=== PATIENT | female | born 1985 | race Caucasian/White ===

== ENCOUNTER 2017-10-03 23:04 | Inpatient (IN) | payer SELFPAY ==
[2017-10-03 23:30] LABS: #Basophils 0.1 thou/uL (0.0-0.2); #Eosinphils 0.1 thou/uL (0.0-0.7); #Lymphocytes 2.7 thou/uL (1.20-3.40); #Monocytes 1.1 thou/uL (0.11-0.59); #Neutrophils 8.3 thou/uL (1.40-6.50); %Basophils 0.7 % (0.0-1.0); %Eosinophils 0.6 % (0.0-10.0); %Lymphocytes 21.9 % (21.0-51.0); %Monocytes 8.9 % (0.0-10.0); %Neutrophils 67.9 % (42.0-75.0); Hemoglobin 15.1 g/dL (12.0-16.0); Mean Corpuscular HGB CONC 33.3 g/dL (32.0-36.0); Mean Corpuscular Hemoglobin 31.2 pg (27.0-31.0); Mean Corpuscular Volume 93.6 fl (81.0-99.0); Mean Platelet Volume 7.6 fL (7.4-10.4); Platelet Count 307 thou/uL (130-400); RBC Distribution Width 12.3 % (11.5-14.5); Red Blood Cell (RBC) Count 4.86 mill/uL (4.20-5.40); White Blood Cell (WBC) Count 12.2 thou/uL (4.8-10.8)
[2017-10-03 23:32] LABS: Base Excess-Venous -5.3 mmol/L (0 (+/- 2.5)); Bicarbonate (HCO3v) 18.5 mmol/L (1.0-85.0); CO2 Tension (PvCO2) 31.4 mmHg (41.0-51.0); Calcium, Ionized 1.03 mmol/L (1.12-1.32); Hemoglobin - Calc 16.1 g/dL (12.0-18.0); O2 Tension (PvO2) 48.7 mmHg (35.0-45.0); T. Carbon Dioxide 19.5 mmol/L (1.0-85.0); pH (Venous) 7.379 (7.35-7.45); vO2 Saturation-calc 83.8 % (94-98)
[2017-10-03] MEDS ORDERED: Activated Charcoal/Sorbitol 25 GM/120 ML TUBE ONE (23:32)
[2017-10-03] MEDS ORDERED: Adacel (T-DAP) 0.5 ML VIAL ONE (23:32)
[2017-10-03 23:36] LABS: INR-International Normal Ratio 1.1; Prothrombin Time 14.4 SEC (12.0-14.7)
[2017-10-03 23:39] LABS: BHCG - Serum Negative (NEGATIVE); Pregs Control Background? CLEAR/WHITE (CLR/WHITE); Pregs Control Bar Appear? YES (CONTROL BAR)
[2017-10-03] MEDS ORDERED: Ondansetron HCl/PF 4 MG/2 ML Vial ONE (23:45)
[2017-10-04 00:11] LABS: Alcohol Less than 10 mg/dL (Less than 10); Salicylate Less than 8.0 mg/dL (15.0-30.0)
[2017-10-04 00:14] LABS: ALT (SGPT) 8 U/L (8-55); AST (SGOT) 10 U/L (5-34); Albumin 4.9 g/dL (3.5-5.0); Alcohol Less than 10 mg/dL (Less than 10); Alkaline Phosphatase 51 U/L (40-150); Anion Gap 20 mmol/L (10-20); BUN (Urea Nitrogen) 8 mg/dL (7.0-18.7); Bilirubin, Total 0.4 mg/dL (0.2-1.2); CK (CPK) 66 U/L (29-168); Calc. Creatinine Clearance 0 mL/min (70-130); Calcium 9.7 mg/dL (7.8-10.44); Carbon Dioxide 18 mmol/L (22-29); Chloride 102 mmol/L (98-107); Estimated GFR-MDRD 81; Globulin 3.9 g/dL (2.4-3.5); Glucose 222 mg/dL (70-105); Lipase 21 U/L (8-78); Protein, Total 8.8 g/dL (6.0-8.3); Sodium 137 mmol/L (136-145)
[2017-10-04 00:15] LABS: Acetaminophen Greater than 378.0 mcg/mL (10.0-30.0)
[2017-10-04] MEDS ORDERED: DEXTROSE 5% IVPB SCH ×6 (01:00→06:00)
[2017-10-04] MEDS ORDERED: WATER IVPB SCH ×6 (01:00→06:00)
[2017-10-04] MEDS ORDERED: ACETYLCYSTEINE IVPB SCH ×6 (01:00→06:00)
[2017-10-04] MEDS ORDERED: Sodium Chloride 0.9% 1,000 ML IV SCH (01:15)
--- NOTE | 2017-10-04 01:15 | PDOC.FPRHP ---
- History of Present Illness Chief Complaint: intentional overdose History of Present Illness: 32 yo female who presents via EMS for an intentional overdose with tylenol, aspiring, and caffeine at aproximately 2230 last night. She initially started cutting her wrists then took an unknown number of pills. She endorses suicidal ideation in the room. However she doesn't know really why she did it. Mom is in the room and says that she started telling her that the antichrist was going to burn her and since she knows tylenol is an antipyretic, she took several tylenol pills. Her mom endorses an undiagnosed psychiatric hx of recurrent episodes of staying up all night, reading the bible, and getting fixated on certain things in it. She also endorses that she sometimes talks to her self. Mom denies any hx of drug use, alcohol, or tobacco use. Mom reports that her daughter's father had Bipolar d/o. She doesn't have insurance and has been unwilling to go to [facility]. Mom reports episodes of depression as well. She states that once in the past, she saw a physician who put her on medication for ADD and Depression. - Allergies/Adverse Reactions Allergies Allergy/AdvReac Type Severity Reaction Status Date / Time Sulfa (Sulfonamide Allergy Unverified 10/04/17 00:23 Antibiotics) - History PMHx: ADD, Depression PSHx: none FHx:Father-Bipolar d/o Social:Has an 8 year old son; Denies smoking, alcohol, or drug use. - Review of Systems General: denies: fever/chills, weight/appetite/sleep changes Eyes: denies: eye pain, vision changes ENT: denies: nasal congestion, rhinorrhea Respiratory: denies: cough, congestion Cardiovascular: denies: chest pain, palpitation Gastrointestinal: denies: nausea, vomiting Genitourinary: denies: incontinence, dysuria Skin: denies: rashes, lesions Musculoskeletal: denies: pain, tenderness Neurological: denies: numbness, syncope Psychological: denies: anxiety, depression - Vital signs BP: 102/78 HR: 103 RR: 16 Tmax: 98 Pox: 97% on RA - Physical Exam Constitutional: NAD, other (sleepy) HEENT: normocephalic and atraumatic, PERRLA, EOMI, conjunctiva clear, no scleral icterus, normal nasal mucosa, MMM Neck: trachea midline, no JVD, no thyromegaly Heart: RRR, normal S1/S2, no murmurs/rubs/gallops, pulses present, no edema Lungs: CTAB, no respiratory distress, good air movement, no rales/rhonchi, no wheezing, no retractions Abdomen: soft, non-tender, bowel sounds present, no masses/distention Musculoskeletal: normal structure, other (normal gait) Neurological: no focal deficit, normal sensation Skin: no rash/lesions, capillary refill <2 seconds, no jaundice Heme/Lymphatic: no unusual bruising or bleeding, no purpura Psychiatric: other (abnormal affect) FMR H&P: Results - Labs Result Diagrams: 10/04/17 02:53 10/04/17 02:53 Lab results: WBC 12.2 thou/uL (4.8-10.8) H 10/03/17 23:15 Hgb 15.1 g/dL (12.0-16.0) 10/03/17 23:15 Hct 45.5 % (36.0-47.0) 10/03/17 23:15 MCV 93.6 fl (81.0-99.0) 10/03/17 23:15 Plt Count 307 thou/uL (130-400) 10/03/17 23:15 Neutrophils % 67.9 % (42.0-75.0) 10/03/17 23:15 VBG pCO2 31.4 mmHg (41.0-51.0) L 10/03/17 23:29 VBG pO2 48.7 mmHg (35.0-45.0) H 10/03/17 23:29 Sodium 137 mmol/L (136-145) 10/03/17 23:15 Potassium 3.0 mmol/L (3.5-5.1) L 10/03/17 23:15 Chloride 102 mmol/L (98-107) 10/03/17 23:15 Carbon Dioxide 18 mmol/L (22-29) L 10/03/17 23:15 BUN 8 mg/dL (7.0-18.7) 10/03/17 23:15 Creatinine 0.82 mg/dL (0.6-1.1) 10/03/17 23:15 Glucose 222 mg/dL (70-105) H 10/03/17 23:15 Lactic Acid 5.9 mmol/L (0.5-2.2) H* 10/03/17 23:15 Calcium 9.7 mg/dL (7.8-10.44) 10/03/17 23:15 Total Bilirubin 0.4 mg/dL (0.2-1.2) 10/03/17 23:15 AST 10 U/L (5-34) 10/03/17 23:15 ALT 8 U/L (8-55) 10/03/17 23:15 Alkaline Phosphatase 51 U/L (40-150) 10/03/17 23:15 Creatine Kinase 66 U/L (29-168) 10/03/17 23:15 Serum Total Protein 8.8 g/dL (6.0-8.3) H 10/03/17 23:15 Albumin 4.9 g/dL (3.5-5.0) 10/03/17 23:15 Lipase 21 U/L (8-78) 10/03/17 23:15 - EKG Interpretation EKG: NSR - Radiology Interpretation Abdominal x-ray Status: image reviewed by me (normal abdominal xray) FMR H&P: A/P - Problem List (1) Suicide attempt Current Visit: Yes Status: Acute (2) Intentional acetaminophen overdose Current Visit: Yes Status: Acute Code(s): T39.1X2A - POISONING BY 4- AMINOPHENOL DERIVATIVES, SELF-HARM, INIT (3) Intentional aspirin overdose Current Visit: Yes Status: Acute Code(s): T39.012A - POISONING BY ASPIRIN, INTENTIONAL SELF-HARM, INIT ENCNTR (4) Suicide ideation Current Visit: Yes Status: Acute Code(s): R45.851 - SUICIDAL IDEATIONS (5) Intentional self-harm Current Visit: Yes Status: Acute Code(s): DCL2067 - (6) Metabolic acidosis Current Visit: Yes Status: Acute Code(s): E87.2 - ACIDOSIS (7) Lactic acidosis Current Visit: Yes Status: Acute Code(s): E87.2 - ACIDOSIS (8) Hypokalemia Current Visit: Yes Status: Acute Code(s): E87.6 - HYPOKALEMIA (9) Hyperglycemia Current Visit: Yes Status: Acute Code(s): R73.9 - HYPERGLYCEMIA, UNSPECIFIED (10) Leukocytosis Current Visit: Yes Status: Acute Code(s): D72.829 - ELEVATED WHITE BLOOD CELL COUNT, UNSPECIFIED - Plan Ms. Navarrete is a 32 yo female who presents s/p suicide attempt 2/2 ingestion of tylenol, aspirin, and caffeine admitted for toxic ingestion, intentional overdose, and intentional self-harm. 1.)Suicide ideation with attempt-pt overdosed at approximately 2230 last night on tylenol, aspirin, and caffeine. see below for detailed plan. 2) Intentional Overdose - Pt overdosed on tylenol, aspirin, and caffeine. Poison control contacted in the ED. Charcoal given. N-Acetylcysteine Protocol started. We plan to monitor for anaphylactic reaction from NAC (as this occurs in 10-20% of pt's) and have benadryl, methylprednisolone, Epi, albuterol and crashcart by bedside. We ordered Q4hr tylenol levels; We will recheck a CMP in the am. MHMR consult once stable. We will place her on suicide precautions. She is going to be admitted to the ICU but once she is downgraded, we will order a sitter. We also plan to check aspirin levels q4hs; we will start a Bicarb drip if > 20 or Urine pH @8. If ASA> 100, she will need emergent dialysis, or sooner if symptomatic. 3.)Tylenol overdose-see above. 4.)Aspirin overdose- see above. 5.)Intentional hyoa-hsmn-px admits to cutting her wrists prior to ingestion as well as admits to the suicide attempt. Once medically stable we will consult MR. 6.)Suspected Bipolar d/o with psychotic features vs schizoaffective-She doesn't have insurance and has a father with bipolar d/o. Mom is concerned that her daughter often for 2 weeks at a time will stay up all night, talk to voices in her head, and become fixated on things written in the bible. She has never been diagnosed with a mental illness in her past, mostly because she doesn't have health insurance. Her mom has tried to get [facility] to go to [facility] 7) Lactic Acidosis - We started her on NS @ 125ml/hr and will recheck a level in 4 hours. 8) Hypokalemia - She was found to have low potassium We replaced it & will recheck in the am. We also ordered a magnesium level. 9) Anion Gap Metabolic Acidosis 2/2 lactic acidosis & possibly ASA overdose - F/ u with BMP in am. 10) Hyperglycemia - monitor closely. We will order a HgA1c. 11) Leukocytosis - We think this is likely reactive. We will f/u with a CBC in the am. FMR H&P: Upper Level - Plan Date/Time: 10/04/17 0115 Giselle Alexander, PGY3, have evaluated this patient and agree with findings/plan as outlined by internet project manager resident. Pertinent changes/additions are listed here. This is a 32 yo WF w/ no PMH, however has not been to a physician in years, presents to ED for Tylenol/ASA overdose. She took 12 pills of an excedrine or maybe more per mom around 10:30pm tonight intentionally. Her son found her cutting her wrists and taking the medication. 911 was called. In the ER, poison control was called and recommended checking tox labs, and her Acetaminophen level was 378 and they recommended starting Charcoal and N-Acetylcystine and watching her closely for seizures, AMS and arrythmias. If her ASA level is above 20, start treatment with Bicarb drip or if urine pH @ 8, start bicarb drip w/ K+. Mom in room and concerned that patient is bipolar as she has manic and depressive events, and patient's dad was bipolar. Patient quit her job at [employer] about 1 week ago due, was PE: AOX4 in no acute distress. Laying in bed, drinking charcoal. Answering some questions, but not all of them. HEENT: Lips are black stained from charcoal. Pharynx clear. Conjunctiva injected. TM WNL. CV: Mildly Tachycardic, regular. No murmur. Resp: CTA bilaterally. No retractions or accessory muscle use Abd: Soft, non-tender to palpation, No organomegaly. Neuro: CNII-XII intact. Skin: Cut lopes on bilateral wrists, all hemostatic Psych: Currently answering questions appropriately. A/P: 1) Tylenol overdose w/ Suicide ideation - Poison control contacted in the ED. Charcoal given. N-Acetylcysteine Protocol started as level was 378. Will monitor for anaphylacic reaction and have benadryl, methylprednisolone, Epi, albuterol and crashcart by bedside. Q4hr tylenol levels. CMP's. [facility] consult once stable. Suicide precautions. 2) Concern for ASA OD - ASA levels Q4hrs. Start Bicarb drip if > 20 or Urine pH @8. If ASA> 100, need dialysis, or sooner if symptomatic. 3) Lactic Acidosis - Fluids. Repeat level 4) Hypokalemia - replace & recheck. Check Magnesium 5) Anion Gap Metabolic Acidosis 2/2 lactic acidosis & possibly ASA overdose - F/ u with BMP. 6) Hyperglycemia - monitor closely, as patient's brain glucose may be lower than serum glucose. HgA1c. 7) Leukocytosis - likely reactive. F/u with CBC. Attending Addendum - Attending Addendum Date/Time: 10/04/17218 I personally evaluated the patient and discussed the management with Dr. Godfrey Morales on 10/04/17. I agree with the History, Examination, Assessment and Plan documented above with any addition or exceptions noted below. Patient with tylenol and aspirin overdose. For tylenol overdose, meets criteria for NAC 3 hours after ingestion based on significantly elevated tylenol serum level. Received activated charcoal in the ER. Will transfer to ICU for NAC treatment based on elevated tylenol levels at an early hour. In addition, will monitor aspirin levels. If increase to >20 or become symptomatic , will start bicarb drip.
[2017-10-04] MEDS ORDERED: Albuterol Sulfate 1.25 MG/3 ML NEB NEB PRN (01:26)
[2017-10-04] MEDS ORDERED: EPINEPHrine 1 MG/10 ML Abboject SYRINGE IVP SCH (01:30)
[2017-10-04] MEDS ORDERED: diphenhydrAMINE 50 MG/ML VIAL IVP SCH (01:30)
[2017-10-04 01:31] LABS: Bilirubin Negative (Negative); Blood, Urine Negative (Negative); Clarity CLEAR (Clear); Glucose, Urine (Dipstick) 250 mg/dL (Negative); Leukocyte Negative (Negative); Nitrite Negative (Negative); Protein, Urine (Dipstick) Negative (Neg-Trace); Specific Gravity, Urine 1.014 (1.002-1.036); Urobilinogen 0.2 mg/dL (0.2-1.0); pH, Urine 5.5 (5.0-9.0)
[2017-10-04 01:41] LABS: Amphetamine Not Detected (NotDetected); Barbiturates Screen Not Detected (NotDetected); Benzodiazepine Screen Not Detected (NotDetected); Cocaine Metabolite Screen Not Detected (NotDetected); Medtox Control Line Valid? VALID (VALID); Medtox Reader # READER 4; Methadone Not Detected (NotDetected); Methamphetamine Not Detected (NotDetected); Opiate Screen Not Detected (NotDetected); Oxycodone Screen Not Detected (NotDetected); Phencyclidine (PCP) Not Detected (NotDetected); THC/Cannabinoid Screen Not Detected (NotDetected); Tricyclic Screen Not Detected (NotDetected)
[2017-10-04] MEDS ORDERED: methylPREDNISolone Sod Succ/PF 125 MG/2 ML VIAL IVP SCH (01:45)
[2017-10-04] MEDS ORDERED: 1/2 NS w/KCL 20 mEq 1,000 ML IV SCH (02:15)
[2017-10-04 03:03] LABS: #Basophils 0.1 thou/uL (0.0-0.2); #Lymphocytes 1.4 thou/uL (1.20-3.40); #Monocytes 0.7 thou/uL (0.11-0.59); #Neutrophils 6.3 thou/uL (1.40-6.50); %Basophils 0.8 % (0.0-1.0); %Eosinophils 0.3 % (0.0-10.0); %Lymphocytes 16.3 % (21.0-51.0); %Monocytes 8.7 % (0.0-10.0); %Neutrophils 73.8 % (42.0-75.0); Hemoglobin 13.5 g/dL (12.0-16.0); Mean Corpuscular Hemoglobin 31.8 pg (27.0-31.0); Mean Corpuscular Volume 93.6 fl (81.0-99.0); Mean Platelet Volume 7.9 fL (7.4-10.4); Platelet Count 280 thou/uL (130-400); RBC Distribution Width 12.1 % (11.5-14.5); Red Blood Cell (RBC) Count 4.25 mill/uL (4.20-5.40); White Blood Cell (WBC) Count 8.5 thou/uL (4.8-10.8)
[2017-10-04 03:09] LABS: Hemoglobin A1c 4.4 % (4.0-6.0)
[2017-10-04] MEDS ORDERED: Promethazine HCl 25 MG/ML VIAL ONE (03:14)
[2017-10-04 03:19] LABS: Lactic Acid 3.8 mmol/L (0.5-2.2)
[2017-10-04 03:23] LABS: ALT (SGPT) 9 U/L (8-55); AST (SGOT) 9 U/L (5-34); Albumin 4.3 g/dL (3.5-5.0); Alcohol Less than 10 mg/dL (Less than 10); Alkaline Phosphatase 39 U/L (40-150); Anion Gap 16 mmol/L (10-20); BUN (Urea Nitrogen) 6 mg/dL (7.0-18.7); Bilirubin, Total 0.2 mg/dL (0.2-1.2); Calc. Creatinine Clearance 0 mL/min (70-130); Calcium 8.7 mg/dL (7.8-10.44); Carbon Dioxide 17 mmol/L (22-29); Chloride 111 mmol/L (98-107); Estimated GFR-MDRD 87; Globulin 3.3 g/dL (2.4-3.5); Glucose 169 mg/dL (70-105); Magnesium 1.8 mg/dL (1.6-2.6); Potassium 3.5 mmol/L (3.5-5.1); Protein, Total 7.6 g/dL (6.0-8.3); Salicylate 20.5 mg/dL (15.0-30.0); Sodium 140 mmol/L (136-145)
[2017-10-04] MEDS ORDERED: Sodium Bicarbonate 150 MEQ in Dextrose 5% in Water 1,000 ML IV SCH ×2 (04:00)
[2017-10-04 04:11] VITALS: BMI 28.4
[2017-10-04 04:12] VITALS: BP 114/62
[2017-10-04 07:52] LABS: ALT (SGPT) 8 U/L (8-55); AST (SGOT) 9 U/L (5-34); Albumin 4.1 g/dL (3.5-5.0); Alcohol Less than 10 mg/dL (Less than 10); Alkaline Phosphatase 37 U/L (40-150); Anion Gap 12 mmol/L (10-20); BUN (Urea Nitrogen) 4 mg/dL (7.0-18.7); Bilirubin, Total 0.3 mg/dL (0.2-1.2); Calc. Creatinine Clearance 104 mL/min (70-130); Calcium 8.5 mg/dL (7.8-10.44); Carbon Dioxide 21 mmol/L (22-29); Chloride 109 mmol/L (98-107); Estimated GFR-MDRD 86; Glucose 147 mg/dL (70-105); Protein, Total 7.1 g/dL (6.0-8.3); Sodium 139 mmol/L (136-145)
[2017-10-04] MEDS ORDERED: Pantoprazole 40 MG VIAL IVP SCH (09:00)
[2017-10-04] MEDS ORDERED: FLU VACC QS2017-18 36 mo. & older 0.5 ML SYRINGE IM ONE (09:00)
--- NOTE | 2017-10-04 09:33 | RAD ---
ACUTE ABDOMINAL SERIES: Indication: History of suicide attempt with tachycardia. Comparison: None. FINDINGS: There is a calcified nodule within the left midlung measuring 1.9 cm suspicious for granuloma. The ri ght lung is clear. Cardiomediastinal silhouette is normal. There is mild focal lumbar scoliosis. The bowel gas pattern is nonobstructive. No suspicious calcification is evident. IMPRESSION: 1. No acute abnormality. 2. Suspected calcified granuloma of the lung. 3. Mild focal lumbar scoliosis. POS: TPC
--- NOTE | 2017-10-04 09:46 | PDOC.FM ---
- Subjective Subjective: Found in bed, having breakfast. She states she didn't know what happen last night, saying "it was like a dream". She states having no issues at this time. - Objective MAR Reviewed: Yes Vital Signs & Weight: Vital Signs (12 hours) Temp Pulse Resp 10/04/17 07:00 98.1 F 10/04/17 05:35 97.7 F 87 22 H Weight Weight 63.8 kg Most Recent Monitor Data Heart Rate from ECG 88 NIBP 131/77 NIBP BP-Mean 100 Respiration from ECG 20 SpO2 100 I&O: 10/03/17 10/04/17 10/05/17 06:59 06:59 06:59 Intake Total 649 322 Output Total 900 Balance -251 322 Result Diagrams: 10/04/17 02:53 10/04/17 07:17 <Usman Cotton M - Last Filed: 10/04/17 10:04> - Objective Vital Signs & Weight: Vital Signs (12 hours) Temp Pulse Resp Pulse Ox 10/04/17 16:00 98.3 F 10/04/17 11:00 98.3 F 10/04/17 08:00 98.3 F 90 18 100 10/04/17 07:00 98.1 F Weight Weight 63.8 kg Most Recent Monitor Data Heart Rate from ECG 106 NIBP 125/83 NIBP BP-Mean 90 Respiration from ECG 19 SpO2 100 I&O: 10/03/17 10/04/17 10/05/17 06:59 06:59 06:59 Intake Total 649 922 Output Total 900 1400 Balance -251 -478 Result Diagrams: 10/04/17 02:53 10/04/17 14:27 <Savannah Rodriguez - Last Filed: 10/04/17 17:55> Phys Exam - Physical Examination Constitutional: NAD HEENT: moist MMs Neck: no nodes, supple Respiratory: no wheezing, no rhonchi Cardiovascular: RRR Gastrointestinal: soft, non-tender, no distention Musculoskeletal: no edema Neurological: non-focal, moves all 4 limbs Lymphatic: no nodes Psychiatric: A&O x 3 Skin: no rash <Usman Cotton - Last Filed: 10/04/17 10:04> Dx/Plan (1) Intentional acetaminophen overdose Code(s): T39.1X2A - POISONING BY 4-AMINOPHENOL DERIVATIVES, SELF-HARM, INIT Status: Acute Plan: Will continue to monitor tylenol level every 6 hours, likely will need oral NAC with extension of 16 hour protocol due to high level. Will monitor liver function and PT/INR daily, consider closer monitoring. (2) Intentional aspirin overdose Code(s): T39.012A - POISONING BY ASPIRIN, INTENTIONAL SELF-HARM, INIT ENCNTR Status: Acute Plan: Will discontinue bicarb drip as patient pH is not depressed and aspirin level has been low to normal range. (3) Hypokalemia Code(s): E87.6 - HYPOKALEMIA Status: Acute Plan: Patient tolerating PO. Plan to give 40 mEq by mouth. Recheck with morning lab. (4) Intentional self-harm Code(s): [id number] - Status: Acute Plan: MHMR consult once medically clear. Sitter when patient transfer out of ICU. (5) Lactic acidosis Code(s): E87.2 - ACIDOSIS Status: Acute Plan: Resolved. Lactic acidosis trended down to 2. (6) Leukocytosis Code(s): D72.829 - ELEVATED WHITE BLOOD CELL COUNT, UNSPECIFIED Status: Acute Plan: Likely reactive . WBC is back into normal range after intial high in ER. (7) Hyperglycemia Code(s): R73.9 - HYPERGLYCEMIA, UNSPECIFIED Status: Acute Plan: Resolved. A1c not elevated. <Usman Cotton - Last Filed: 10/04/17 10:04> Attending Addendum - Attending Addendum Date/Time: 10/04/17 1004 I personally evaluated the patient and discussed the management with Dr. Cotton. I agree with the History, Examination, Assessment and Plan documented above with any addition or exceptions noted below. Continuing protocol for tylenol overdose. Once levels are normal patient will need mhmr consult. She doesn't remember taking the medications. <Savannah Rodriguez - Last Filed: 10/04/17 17:55>
[2017-10-04] MEDS ORDERED: Potassium Chloride 20 MEQ TAB PO SCH (10:00)
[2017-10-04 10:06] LABS: PTT 29.2 SEC (22.9-36.1)
[2017-10-04 10:10] LABS: INR-International Normal Ratio 1.3; Prothrombin Time 16.3 SEC (12.0-14.7)
[2017-10-04 11:30] LABS: Lactic Acid 1.4 mmol/L (0.5-2.2)
[2017-10-04 11:36] LABS: ALT (SGPT) 10 U/L (8-55); AST (SGOT) 10 U/L (5-34); Albumin 4.2 g/dL (3.5-5.0); Alcohol Less than 10 mg/dL (Less than 10); Alkaline Phosphatase 41 U/L (40-150); Anion Gap 14 mmol/L (10-20); BUN (Urea Nitrogen) 4 mg/dL (7.0-18.7); Bilirubin, Total 0.3 mg/dL (0.2-1.2); Calc. Creatinine Clearance 115 mL/min (70-130); Calcium 8.6 mg/dL (7.8-10.44); Carbon Dioxide 19 mmol/L (22-29); Chloride 109 mmol/L (98-107); Estimated GFR-MDRD Greater than 90; Globulin 3.4 g/dL (2.4-3.5); Glucose 91 mg/dL (70-105); Potassium 3.1 mmol/L (3.5-5.1); Protein, Total 7.6 g/dL (6.0-8.3); Salicylate 20.4 mg/dL (15.0-30.0); Sodium 139 mmol/L (136-145)
[2017-10-04] MEDS: Nicotine 14 MG PATCH TOP SCH (13:13)
[2017-10-04] MEDS: Sodium Chloride 0.9% 1,000 ML IV SCH ×2 (13:13→22:00)
--- NOTE | 2017-10-04 14:12 | CON ---
DATE OF CONSULTATION: 10/04/2017 SUBJECTIVE: Mrs. Navarrete is a 32-year-old female, who apparently intentionally took about a large q uantity of Tylenol. She is unable to remember the events. She says she is in a dream, but apparentl y somewhere down the line there were 8 bottles of Tylenol, unclear how many grams of Tylenol she took , but initially Tylenol level was markedly elevated. It remains elevated. She was started on Mucomy st last night, apparently her Tylenol level is still elevated several hours into the Mucomyst. EMS apparently got some information. She took 800 tablets, what appears to be maybe 500 mg Tylenol a nd aspirin, unknown how much aspirin. Apparently, her brother called 911 as per the history. Mother apparently is at home. Patient clearly appears to be somewhat encephalopathic. We are unable to get additional information at this time. It is unclear whether she has had a simila r episode. History is pertinent mainly for apparently depression. Apparently father with bipolar from the [facility]. PAST MEDICAL HISTORY: History of hypertension. PAST SURGICAL HISTORY: None. CHRONIC MEDICATIONS: Unknown. REVIEW OF SYSTEMS: Otherwise unremarkable. PHYSICAL EXAMINATION: GENERAL: On examination, awake, alert, and responsive. VITAL SIGNS: Blood pressure 103/59, pulse 68, temperature 99, respiratory rate 18. CHEST: Decreased breath sounds, no wheezing. CARDIAC: Normal S1 and S2. No gallops. ABDOMEN: Soft, no masses. NEUROLOGIC: She is awake, alert, responsive. Now, she is clearly encephalopathic. LABORATORY DATA: White count 8000, H and H 13 and 39, platelet count is 280. Her liver function is normal. Her Tylenol level is 174, 12 hours into her intake of medication. Bicarbonate level is normal. IMPRESSION: 1. Intentional ingestion of large quantity of Tylenol. 2. Mild metabolic acidosis, improved. 3. Encephalopathy. PLAN: Continue Mucomyst for another 12 hours until the Tylenol level is below therapeutic range. Continue aggressive hydration. Probably needs ongoing counseling. Serial exam, liver function, PT, PTT, Tylenol level. We will follow in the ICU. One-half critical care time.
[2017-10-04 14:54] LABS: Lactic Acid 1.3 mmol/L (0.5-2.2)
[2017-10-04 14:57] LABS: ALT (SGPT) 8 U/L (8-55); AST (SGOT) 10 U/L (5-34); Alcohol Less than 10 mg/dL (Less than 10); Alkaline Phosphatase 38 U/L (40-150); Anion Gap 13 mmol/L (10-20); BUN (Urea Nitrogen) 4 mg/dL (7.0-18.7); Bilirubin, Total 0.3 mg/dL (0.2-1.2); Calc. Creatinine Clearance 120 mL/min (70-130); Calcium 8.4 mg/dL (7.8-10.44); Carbon Dioxide 21 mmol/L (22-29); Chloride 110 mmol/L (98-107); Estimated GFR-MDRD Greater than 90; Globulin 3.2 g/dL (2.4-3.5); Glucose 128 mg/dL (70-105); Potassium 3.4 mmol/L (3.5-5.1); Protein, Total 7.2 g/dL (6.0-8.3); Salicylate 16.3 mg/dL (15.0-30.0); Sodium 141 mmol/L (136-145)
[2017-10-04 17:30] LABS: INR-International Normal Ratio 1.3; Prothrombin Time 16.4 SEC (12.0-14.7)
[2017-10-04 17:31] LABS: PTT 28.3 SEC (22.9-36.1)
[2017-10-04 18:08] LABS: ALT (SGPT) 8 U/L (8-55); AST (SGOT) 10 U/L (5-34); Albumin 3.9 g/dL (3.5-5.0); Alcohol Less than 10 mg/dL (Less than 10); Alkaline Phosphatase 39 U/L (40-150); Anion Gap 12 mmol/L (10-20); BUN (Urea Nitrogen) 4 mg/dL (7.0-18.7); Bilirubin, Total 0.4 mg/dL (0.2-1.2); Calc. Creatinine Clearance 125 mL/min (70-130); Calcium 8.3 mg/dL (7.8-10.44); Carbon Dioxide 20 mmol/L (22-29); Chloride 111 mmol/L (98-107); Estimated GFR-MDRD Greater than 90; Glucose 105 mg/dL (70-105); Potassium 3.3 mmol/L (3.5-5.1); Protein, Total 6.9 g/dL (6.0-8.3); Salicylate 10.3 mg/dL (15.0-30.0); Sodium 140 mmol/L (136-145)
[2017-10-05 00:15] LABS: INR-International Normal Ratio 1.3; PTT 27.9 SEC (22.9-36.1); Prothrombin Time 16.4 SEC (12.0-14.7)
[2017-10-05 00:32] LABS: ALT (SGPT) 9 U/L (8-55); AST (SGOT) 10 U/L (5-34); Acetaminophen Less than 6.0 mcg/mL (10.0-30.0); Alcohol Less than 10 mg/dL (Less than 10); Alkaline Phosphatase 38 U/L (40-150); Anion Gap 10 mmol/L (10-20); BUN (Urea Nitrogen) Less than 4 mg/dL (7.0-18.7); Bilirubin, Total 0.4 mg/dL (0.2-1.2); Calc. Creatinine Clearance 129 mL/min (70-130); Calcium 8.6 mg/dL (7.8-10.44); Carbon Dioxide 22 mmol/L (22-29); Chloride 111 mmol/L (98-107); Estimated GFR-MDRD Greater than 90; Glucose 102 mg/dL (70-105); Potassium 3.2 mmol/L (3.5-5.1); Salicylate Less than 8.0 mg/dL (15.0-30.0); Sodium 140 mmol/L (136-145)
[2017-10-05] MEDS ORDERED: Acetylcysteine 20% 200 MG/ML 30 ML VIAL PO SCH (01:00)
[2017-10-05] MEDS ORDERED: Potassium Chloride 20 MEQ TAB PO SCH ×2 (03:15→09:15)
[2017-10-05 03:25] LABS: #Basophils 0.1 thou/uL (0.0-0.2); #Eosinphils 0.1 thou/uL (0.0-0.7); #Lymphocytes 1.7 thou/uL (1.20-3.40); #Monocytes 0.5 thou/uL (0.11-0.59); #Neutrophils 4.4 thou/uL (1.40-6.50); %Basophils 1.3 % (0.0-1.0); %Eosinophils 2.1 % (0.0-10.0); %Lymphocytes 25.2 % (21.0-51.0); %Monocytes 7.8 % (0.0-10.0); %Neutrophils 63.7 % (42.0-75.0); Hemoglobin 11.7 g/dL (12.0-16.0); Mean Corpuscular HGB CONC 33.5 g/dL (32.0-36.0); Mean Corpuscular Hemoglobin 31.6 pg (27.0-31.0); Mean Corpuscular Volume 94.2 fl (81.0-99.0); Mean Platelet Volume 7.5 fL (7.4-10.4); Platelet Count 219 thou/uL (130-400); RBC Distribution Width 12.2 % (11.5-14.5); White Blood Cell (WBC) Count 6.9 thou/uL (4.8-10.8)
[2017-10-05 03:51] LABS: Acetaminophen Less than 6.0 mcg/mL (10.0-30.0); Alcohol Less than 10 mg/dL (Less than 10); Salicylate Less than 8.0 mg/dL (15.0-30.0)
[2017-10-05] MEDS: Sodium Chloride 0.9% 1,000 ML IV SCH (05:05)
[2017-10-05 07:33] LABS: Acetaminophen Less than 6.0 mcg/mL (10.0-30.0); Alcohol Less than 10 mg/dL (Less than 10); Salicylate Less than 8.0 mg/dL (15.0-30.0)
--- NOTE | 2017-10-05 09:03 | PDOC.FM ---
- Subjective Subjective: Patient found in bed, smiling and having breakfast. She state she had no issues overnight. She still not sure what happened on the night of her admission. She denied headache, fever, abd pain, nausea. No events overnight per nursing. - Objective MAR Reviewed: Yes Vital Signs & Weight: Vital Signs (12 hours) Temp Pulse Resp 10/05/17 07:07 99.0 F 99 23 H 10/05/17 03:00 98.7 F 10/05/17 00:00 98.0 F Weight Weight 63.8 kg Most Recent Monitor Data Heart Rate from ECG 134 NIBP 120/75 NIBP BP-Mean 92 Respiration from ECG 23 SpO2 100 I&O: 10/04/17 10/05/17 10/06/17 06:59 06:59 06:59 Intake Total 649 4774 300 Output Total 900 3050 250 Balance -251 1724 50 Result Diagrams: 10/05/17 03:14 10/05/17 00:00 <LulaUsman M - Last Filed: 10/05/17 09:07> - Objective Vital Signs & Weight: Vital Signs (12 hours) Temp Pulse Resp 10/05/17 07:59 99.0 F 10/05/17 07:07 99.0 F 99 23 H 10/05/17 03:00 98.7 F 10/05/17 00:00 98.0 F Weight Weight 63.8 kg Most Recent Monitor Data Heart Rate from ECG 97 NIBP 108/67 NIBP BP-Mean 78 Respiration from ECG 24 SpO2 100 I&O: 10/04/17 10/05/17 10/06/17 06:59 06:59 06:59 Intake Total 649 4774 400 Output Total 900 3050 500 Balance -251 1724 -100 Result Diagrams: 10/05/17 03:14 10/05/17 00:00 <Savannah Rodriguez - Last Filed: 10/05/17 10:57> Phys Exam - Physical Examination Constitutional: NAD HEENT: moist MMs Neck: no nodes, supple Respiratory: no wheezing, no rales, no rhonchi Cardiovascular: RRR, no significant murmur, no rub Gastrointestinal: soft, non-tender, no distention, positive bowel sounds Musculoskeletal: no edema Neurological: non-focal, moves all 4 limbs Lymphatic: no nodes Psychiatric: A&O x 3 Skin: no rash <Usman Cotton - Last Filed: 10/05/17 09:07> Dx/Plan (1) Intentional acetaminophen overdose Code(s): T39.1X2A - POISONING BY 4-AMINOPHENOL DERIVATIVES, SELF-HARM, INIT Status: Acute Plan: Completed course, tylenol level is now below 6. Liver enzyme are not elevated. PT is mildly elevated, INR normal. At this time, initial incident appears resolved . (2) Intentional aspirin overdose Code(s): T39.012A - POISONING BY ASPIRIN, INTENTIONAL SELF-HARM, INIT ENCNTR Status: Acute Plan: Aspirin is not elevated. (3) Hypokalemia Code(s): E87.6 - HYPOKALEMIA Status: Acute Plan: Patient tolerating PO. Still mild hypokalemia. Will give a PO dose of potassium. (4) Intentional self-harm Code(s): [id number] - Status: Acute Plan: MR consult now that medically clear. Sitter when patient transfer out of ICU. (5) Lactic acidosis Code(s): E87.2 - ACIDOSIS Status: Acute Plan: Resolved. Lactic acidosis trended down to 2. (6) Leukocytosis Code(s): D72.829 - ELEVATED WHITE BLOOD CELL COUNT, UNSPECIFIED Status: Acute Plan: Likely reactive . WBC is back into normal range after intial high in ER. (7) Hyperglycemia Code(s): R73.9 - HYPERGLYCEMIA, UNSPECIFIED Status: Acute Plan: Resolved. A1c not elevated. - Plan Plan: 1. Noted to have mild hyperchloremia for which her IV fluid has recently been dc. Plan for MR to clear and likely discharge soon. <Usman Cotton - Last Filed: 10/05/17 09:07> Attending Addendum - Attending Addendum Date/Time: 10/05/17 1056 I personally evaluated the patient and discussed the management with Dr. Cotton. I agree with the History, Examination, Assessment and Plan documented above with any addition or exceptions noted below. The patient's tylenol and aspirin levels are normal and liver enzymes are stable. Will consult [facility] for evaluation and patient can transfer to the floor with a sitter. <Savannah Rodriguez - Last Filed: 10/05/17 10:57>
[2017-10-05 09:08] LABS: INR-International Normal Ratio 1.3; PTT 28.6 SEC (22.9-36.1); Prothrombin Time 16.6 SEC (12.0-14.7)
[2017-10-05] MEDS: Nicotine 14 MG PATCH TOP SCH (12:32)
[2017-10-05] MEDS ORDERED: Ziprasidone 20 MG VIAL IM PRN (13:16)
--- NOTE | 2017-10-05 14:06 | PRG ---
DATE OF SERVICE: 10/05/2017 This morning she is better, still surprised that Tylenol level is 6 or less. She is asymptomatic. PHYSICAL EXAMINATION: VITAL SIGNS: Blood pressure 170/73, sats 100% on room air, respirations 18, temperature 99, CHEST: Chest reveals decreased breath sounds, no wheezing. CARDIAC: Normal S1, S2, no gallops. LABORATORY: White count 6000. H&H 11 and 33, platelet count 219. Electrolytes are normal. Potassium 3.2. Liver function is normal. IMPRESSION: 1. Status post intentional overdose with a large quantity of Tylenol. Normal liver function. 2. Depression. PLAN; She can probably be transferred out of the IMCU. She needs ongoing counseling. Supportive care. Pulmonary will follow at a distance once out of the ICU.
[2017-10-05 16:17] VITALS: TEMP 98.8
[2017-10-05 17:33] LABS: INR-International Normal Ratio 1.1; PTT 26.6 SEC (22.9-36.1); Prothrombin Time 14.7 SEC (12.0-14.7)
--- NOTE | 2017-10-06 11:57 | EKG ---
Test Reason : OVERDOSE Blood Pressure : / mmHG Vent. Rate : 126 BPM Atrial Rate : 126 BPM P-R Int : 128 ms QRS Dur : 092 ms QT Int : 414 ms P-R-T Axes : 066 091 057 degrees QTc Int : 599 ms Sinus tachycardia Rightward axis Borderline ECG Confirmed by SARA THAKKAR M.D. ([id number]), film editor supervisor DANA ALVAREZ ([id number]) on 10/06/2017 11:56:19 AM Referred By: Confirmed By:SARA THAKKAR M.D.
== END 2017-10-05 20:06 | disposition short-term general hospital (02) | DRG 917 ==
LOC: ERS 23:04 → CCU 10-04 03:41
PROVIDERS: ADMIT Family Medicine; ATTEND Family Medicine
DX: T39.1X2A Poisoning by 4-Aminophenol derivatives, intentional self-harm, initial encounter (principal); G93.40 Encephalopathy, unspecified; E87.2 Acidosis; F32.9 Major depressive disorder, single episode, unspecified; T39.012A Poisoning by aspirin, intentional self-harm, initial encounter; T43.612A Poisoning by caffeine, intentional self-harm, initial encounter; Y92.009 Unspecified place in unspecified non-institutional (private) residence as the place of occurrence of the external cause; Z81.8 Family history of other mental and behavioral disorders; F98.8 Other specified behavioral and emotional disorders with onset usually occurring in childhood and adolescence; Z88.2 Allergy status to sulfonamides; E87.6 Hypokalemia; R73.9 Hyperglycemia, unspecified; D72.829 Elevated white blood cell count, unspecified
CPT/HCPCS: 36415; 74022; 80053; 80306; 80307; 81003; 82330; 82550; 82803; 83036; 83605; 83690; 83735; 84703; 85025; 85610; 85730; 90471; 90715; 93005; 96361; 96365; 96366; 96374; 96375; C9113; J0132; J0171; J1200; J2405; J2550; J2930; J3486; J7070; J7608

== ENCOUNTER 2022-04-08 04:13 | Emergency (ER) | payer SELFPAY ==
[2022-04-08] MEDS ORDERED: Dexamethasone 10 MG/ML VIAL ONE (04:35)
== END 2022-04-08 04:38 | disposition home or self-care (01) ==
LOC: ERS 04:13
DX: J02.0 Streptococcal pharyngitis (principal); F17.210 Nicotine dependence, cigarettes, uncomplicated
CPT/HCPCS: 99282; J1100

== ENCOUNTER 2024-01-19 18:54 | Emergency (ER) | payer SELFPAY ==
[2024-01-19 19:27] LABS: Amphetamine Not Detected (NotDetected); Barbiturates Screen Not Detected (NotDetected); Benzodiazepine Screen Not Detected (NotDetected); Cocaine Metabolite Screen Not Detected (NotDetected); Methadone Not Detected (NotDetected); Methamphetamine Not Detected (NotDetected); Opiate Screen Not Detected (NotDetected); Oxycodone Screen Not Detected (NotDetected); Phencyclidine (PCP) Not Detected (NotDetected); THC/Cannabinoid Screen Not Detected (NotDetected); Tricyclic Screen Not Detected (NotDetected)
[2024-01-19 19:51] LABS: Bacteria/HPF None Seen HPF (None Seen); Bilirubin Negative (Negative); Blood, Urine Negative (Negative); CAUTI Indications for Culture Pelvic or flank pain; Clarity Clear (Clear); Glucose, Urine (Dipstick) Normal (Negative); Ketone, Urine Negative (Negative); Leukocyte Negative Leu/uL (Negative); Nitrite Negative (Negative); Protein, Urine (Dipstick) Negative (Neg-Trace); RBC/HPF None Seen HPF (0-3); Specific Gravity, Urine 1.008 (1.002-1.036); Squamous Epithelial 0-3 HPF (0-3); Urobilinogen Normal mg/dL (Less than 2); WBC/HPF None Seen HPF (0-3); pH, Urine 6.5 (5.0-9.0)
[2024-01-19 19:52] LABS: Pregnancy Test - Urine (BHCG) Negative (Negative); Pregu Control Background? CLEAR/WHITE (CLR/WHITE); Pregu Control Bar Appear? YES (CONTROL BAR); Specific Gravity 1.008 (1.002-1.036); Urine Culture Reflex No No
[2024-01-19 19:58] LABS: %Basophils 0.8 % (0.0-1.0); %Eosinophils 3.1 % (0.0-10.0); %Monocytes 8.8 % (0.0-10.0); %Neutrophils 56.9 % (42.0-75.0); Hematocrit 45.5 % (36.0-47.0); Hemoglobin 15.3 g/dL (12.0-16.0); Mean Corpuscular HGB CONC 33.6 g/dL (32.0-36.0); Mean Corpuscular Hemoglobin 32.9 pg (27.0-31.0); Mean Corpuscular Volume 97.8 fL (78.0-98.0); Mean Platelet Volume 10.5 fL (7.4-10.4); Platelet Count 314 10x3/uL (130-400); RBC Distribution Width 13.9 % (11.5-14.5); Red Blood Cell (RBC) Count 4.65 mill/uL (4.20-5.40)
[2024-01-19 20:15] LABS: ALT (SGPT) 17 U/L (8-55); AST (SGOT) 14 U/L (5-34); Albumin 3.8 g/dL (3.5-5.0); Alkaline Phosphatase 54 U/L (40-110); Anion Gap 12 mmol/L (10-20); BUN (Urea Nitrogen) 9 mg/dL (7.0-18.7); Bilirubin, Total 0.2 mg/dL (0.2-1.2); Calc. Creatinine Clearance 0 mL/min (70-130); Calcium 8.8 mg/dL (7.8-10.44); Carbon Dioxide 21 mmol/L (22-29); Chloride 108 mmol/L (98-107); Estimated GFR 110; Globulin 3.2 g/dL (2.4-3.5); Glucose 89 mg/dL (70-105); Potassium 4.1 mmol/L (3.5-5.1); Sodium 137 mmol/L (136-145)
[2024-01-19 20:18] LABS: Acetaminophen Less than 10 mcg/mL (10.0-30.0); Alcohol Less than 10.0 mg/dL (Less than 10); Salicylate Less than 8.0 mg/dL (15.0-30.0)
[2024-01-19] MEDS ORDERED: Nicotine 14 MG PATCH ONE (22:13)
== END 2024-01-19 23:00 ==
LOC: ERS 18:54
DX: R45.851 Suicidal ideations (principal); F32.A Depression, unspecified; Z55.6 Problems related to health literacy; Z79.899 Other long term (current) drug therapy
CPT/HCPCS: 36415; 80053; 80306; 80307; 81001; 81025; 84443; 85025; 93005

== ENCOUNTER 2024-02-04 22:09 | Emergency (ER) | payer SELFPAY ==
[2024-02-04 23:48] LABS: #Basophils 0.08 10x3/uL (0.0-0.2); %Basophils 0.7 % (0.0-1.0); %Eosinophils 2.2 % (0.0-10.0); %Lymphocytes 20.2 % (21.0-51.0); %Monocytes 7.8 % (0.0-10.0); %Neutrophils 68.7 % (42.0-75.0); Hematocrit 45.2 % (36.0-47.0); Hemoglobin 15.3 g/dL (12.0-16.0); Mean Corpuscular HGB CONC 33.8 g/dL (32.0-36.0); Mean Corpuscular Hemoglobin 32.2 pg (27.0-31.0); Mean Corpuscular Volume 95.2 fL (78.0-98.0); Mean Platelet Volume 9.2 fL (7.4-10.4); Platelet Count 351 10x3/uL (130-400); RBC Distribution Width 13.8 % (11.5-14.5); Red Blood Cell (RBC) Count 4.75 mill/uL (4.20-5.40)
[2024-02-05 00:03] LABS: ALT (SGPT) 17 U/L (8-55); AST (SGOT) 12 U/L (5-34); Acetaminophen Less than 10 mcg/mL (10.0-30.0); Albumin 3.6 g/dL (3.5-5.0); Alcohol Less than 10.0 mg/dL (Less than 10); Alkaline Phosphatase 59 U/L (40-110); Anion Gap 14 mmol/L (10-20); BUN (Urea Nitrogen) 13 mg/dL (7.0-18.7); Bilirubin, Total 0.2 mg/dL (0.2-1.2); Calc. Creatinine Clearance 0 mL/min (70-130); Calcium 9.5 mg/dL (7.8-10.44); Carbon Dioxide 25 mmol/L (22-29); Chloride 106 mmol/L (98-107); Estimated GFR 115; Globulin 3.2 g/dL (2.4-3.5); Glucose 100 mg/dL (70-105); Potassium 3.6 mmol/L (3.5-5.1); Protein, Total 6.8 g/dL (6.0-8.3); Salicylate Less than 8.0 mg/dL (15.0-30.0); Sodium 141 mmol/L (136-145)
[2024-02-05 01:06] LABS: Bacteria/HPF None Seen HPF (None Seen); Bilirubin Negative (Negative); Blood, Urine 3+ (Negative); CAUTI Indications for Culture < 2yrs of age; Clarity Clear (Clear); Glucose, Urine (Dipstick) Normal (Negative); Ketone, Urine Negative (Negative); Leukocyte Negative Leu/uL (Negative); Nitrite Negative (Negative); Protein, Urine (Dipstick) Negative (Neg-Trace); RBC/HPF Greater than 50 HPF (0-3); Specific Gravity, Urine 1.007 (1.002-1.036); Squamous Epithelial None Seen HPF (0-3); Urobilinogen Normal mg/dL (Less than 2); WBC/HPF 21-50 HPF (0-3)
[2024-02-05 01:07] LABS: Pregnancy Test - Urine (BHCG) Negative (Negative); Pregu Control Background? CLEAR/WHITE (CLR/WHITE); Pregu Control Bar Appear? YES (CONTROL BAR); Specific Gravity 1.007 (1.002-1.036); Urine Culture Reflex Yes Yes
[2024-02-05 01:14] LABS: Amphetamine Not Detected (NotDetected); Barbiturates Screen Not Detected (NotDetected); Benzodiazepine Screen Not Detected (NotDetected); Cocaine Metabolite Screen Not Detected (NotDetected); Methadone Not Detected (NotDetected); Methamphetamine Not Detected (NotDetected); Opiate Screen Not Detected (NotDetected); Oxycodone Screen Not Detected (NotDetected); Phencyclidine (PCP) Not Detected (NotDetected); THC/Cannabinoid Screen Not Detected (NotDetected); Tricyclic Screen Not Detected (NotDetected)
== END 2024-02-05 04:48 | disposition home or self-care (01) ==
LOC: ERS 22:09
DX: F33.9 Major depressive disorder, recurrent, unspecified (principal)
CPT/HCPCS: 36415; 80053; 80143; 80179; 80306; 80307; 81001; 81025; 85025; 87086; 99285